=== PATIENT | male | born 1955 | race Caucasian/White ===

== ENCOUNTER 2020-02-27 16:47 | Emergency (ER) | payer MEDICAID ==
[2020-02-27] MEDS ORDERED: DEXAMETHASONE SOD PHOS INJ 10 MG/1 ML VIAL IM ONE (17:13)
--- NOTE | 2020-02-27 17:15 | ER Document Report ---
ED Medical Screen (RME) - General Chief Complaint: Hand Pain Stated Complaint: HAND PAIN Time Seen by Provider: 02/27/20 17:03 Notes: Patient is a 65-year-old male who presents to the emergency department with a chief complaint of bilateral hand pain. Patient states that he has had his symptoms for the past week. He also admits to having some numbness in his right middle finger. Patient states that he is supposed to have knee replacement surgery, but it got postponed. He has a history of arthritis. Patient states that over the past couple days, he has had excruciating pain. He has been taking ibuprofen, but is now self-medicating. Admits to drinking a 12 pack of beer today. His last drink was just prior to arrival. Exam: Tenderness to bilateral hands. I have greeted and performed a rapid initial assessment of this patient. A comprehensive ED assessment and evaluation of the patient, analysis of test results and completion of medical decision making process will be conducted by an additional ED providers. - Related Data Allergies/Adverse Reactions: No Known Allergies Allergy (Unverified 02/27/20 16:57) Home Medications: ibuprofen Past Medical History - Social History Chew tobacco use (# tins/day): No Frequency of alcohol use: Social Drug Abuse: None Physical Exam - Vital signs Vitals: Temp Pulse Resp BP Pulse Ox 98.0 F 104 H 18 160/86 H 94 02/27/20 16:52 02/27/20 16:52 02/27/20 16:52 02/27/20 16:52 02/27/20 16:52 Course - Vital Signs Vital signs: Temp Pulse Resp BP Pulse Ox 98.0 F 104 H 18 160/86 H 94 02/27/20 16:52 02/27/20 16:52 02/27/20 16:52 02/27/20 16:52 02/27/20 16:52
--- NOTE | 2020-02-27 18:10 | RADIOLOGY REPORT (SQ) ---
EXAM DESCRIPTION: HAND BILATERAL 3 VIEWS IMAGES COMPLETED DATE/TIME: 02/27/2020 4:25 pm REASON FOR STUDY: bilateral hand pain COMPARISON: None. EXAM PARAMETERS: NUMBER OF VIEWS: 6 views TECHNIQUE: AP, lateral and oblique radiographic images acquired of the right and left hand. LIMITATIONS: None. FINDINGS: MINERALIZATION: Normal. BONES: There is joint space narrowing, subchondral sclerosis and bony remodeling at the 1st digit car pometacarpal joint spaces bilaterally. Remaining carpal bones, metacarpal phalangeal and PIP and DIP joints have normal alignment and appearance. No acute fracture or dislocation of either hand. JOINTS: No effusions. No significant periarticular erosions or chondrocalcinosis. SOFT TISSUES: No soft tissue swelling. No foreign body. OTHER: No other significant finding. IMPRESSION: Moderate osteoarthritis 1st digit carpometacarpal joint bilaterally. No acute fracture or dislocation. TECHNICAL DOCUMENTATION: JOB ID: [id number] 2010 [employer]- All Rights Reserved Reading location - IP/workstation name: [email or web address]
[2020-02-27] MEDS ORDERED: KETOROLAC TROMETHAMINE 60 MG/2 ML SDV IM ONE (19:42)
--- NOTE | 2020-02-27 19:48 | ER Document Report ---
ED General - General Chief Complaint: Hand Pain Stated Complaint: HAND PAIN Time Seen by Provider: 02/27/20 17:03 - HPI Notes: Chief complaint: Bilateral hand pain 65-year-old male with generalized osteoarthritis awaiting right knee replacement and currently taking [id number] ibuprofen as his only medication comes in now with 2-week history of worsening stiffness and pain of both hands. He denies any injury. Patient states he is never been evaluated by a physician for gout. He currently does not have a primary care physician. He sees Dr. Jose Torres from orthopedics. Patient has no known history of kidney disease, liver disease or diabetes mellitus. He denies any known history of peptic ulcer disease. 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 HENT: Negative for sore throat. Eyes: Negative for visual changes. Cardiovascular: Negative for chest pain. Respiratory: Negative for shortness of breath. Gastrointestinal: Negative for abdominal pain, vomiting or diarrhea. Genitourinary: Negative for dysuria. Musculoskeletal: As per HPI. Skin: Negative for rash. Neurological: Negative for headaches, weakness or numbness. 10 point ROS negative except as marked above and in HPI. Physical Exam - Vital signs Vitals: Temp Pulse Resp BP Pulse Ox 98.0 F 104 H 18 160/86 H 94 02/27/20 16:52 02/27/20 16:52 02/27/20 16:52 02/27/20 16:52 02/27/20 16:52 - Notes Notes: GENERAL: Mildly obese male approximately stated age who appears uncomfortable. SKIN: Good turgor no rashes. HEAD: Normocephalic atraumatic. EYES: PERRLA. EOMI. Conjunctivae and sclerae clear. EARS: CANALS AND TMS CLEAR. NOSE: CLEAR. MOUTH: Moist mucosa. Good dentition. No stridor or edema. No drooling. NECK: Supple. No masses or thyromegaly. No adenopathy. Carotids 2+ without bruits. No JVD. BACK: Symmetrical without tenderness. CHEST: Respirations unlabored. Breath sounds clear and symmetrical. HEART: Regular rhythm. No murmur gallop or rub. ABDOMEN: Soft nontender without masses, organomegaly or rebound. Bowel sounds normally active. No bruits. GENITALIA: Deferred. EXTREMITIES: Mild degenerative changes in phalangeal joints of both hands. Diffuse tenderness over both hands. No visible swelling warmth or redness. Moderate crepitus right knee joint without effusion warmth or redness. No edema. No calf tenderness. Cap refill less than 1.5 seconds. Dorsalis pedis and posterior tibial pulses 3+ and symmetrical. NEUROLOGICAL: GCS 15. Alert and oriented x3. Normal gait. Fluent speech. Cranial nerves II through XII intact. Sensorimotor and cerebellar normal. Normal tone. PSYCHIATRIC: Appropriate affect. Course - Re-evaluation Re-evalutation: 02/27/20 19:46 X-rays reviewed by me and interpreted by radiologist showing mild to moderate diffuse degenerative changes. Patient is received IM Decadron here. Also given IM Toradol. I will place him on some Celebrex at home and have him follow-up with primary care physician and his orthopedist. He may also need further evaluation by a induction heating equipment setter. - Vital Signs Vital signs: Temp Pulse Resp BP Pulse Ox 98.0 F 104 H 18 160/86 H 94 02/27/20 16:52 02/27/20 16:52 02/27/20 16:52 02/27/20 16:52 02/27/20 16:52 Discharge - Discharge Clinical Impression: Inflammatory osteoarthritis Condition: Stable Disposition: HOME, SELF-CARE Additional Instructions: Osteoarthritis Your symptoms are due to osteoarthritis. Osteoarthritis is inflammation caused by "wear and tear" of the joints. There is no cure for osteoarthritis, but medicine can help the pain and stiffness. It's important to keep the joints moving. Move the joints through their full range daily. Light exercise helps, but if exercise hurts, switch to a non-impact exercise like swimming. Local warmth may help ease pain. Call or return if any joint becomes severely swollen or increasingly painful, or if you have fever or spreading redness. Take prescribed medication as instructed. Follow-up with your orthopedic physician and primary care physician. You may wish to also talk with him about referral to a induction heating equipment setter. Elevate both hands and apply ice packs intermittently. Prescriptions: Celecoxib [Celebrex 100 mg Capsule] 100 mg PO BID #30 capsule Referrals: [facility] [Provider Group] - Follow up as needed
[2020-02-27 20:01] VITALS: BP 114/70
== END 2020-02-27 20:03 | disposition home or self-care (01) ==
LOC: ER 16:47
DX: M19.90 Unspecified osteoarthritis, unspecified site (principal); M79.642 Pain in left hand; M79.641 Pain in right hand; E66.9 Obesity, unspecified; F17.200 Nicotine dependence, unspecified, uncomplicated
CPT/HCPCS: 99283; 96372; 73130; J1885; J1100

== ENCOUNTER 2020-04-07 20:36 | Emergency (ER) | payer MEDICAID ==
[2020-04-07 20:54] VITALS: BP 134/99
[2020-04-07] MEDS ORDERED: ACETAMINOPHEN 325 MG TABLET PO ONE (21:17)
[2020-04-07 22:31] LABS: ABSOLUTE BASOPHILS # (AUTO) 0.1 10^3/uL (0.0-0.2); ABSOLUTE EOSINOPHILS # (AUTO) 0.1 10^3/uL (0.0-0.6); ABSOLUTE LYMPHOCYTES (AUTO) 2.9 10^3/uL (0.5-4.7); ABSOLUTE MONOCYTES (AUTO) 0.5 10^3/uL (0.1-1.4); ABSOLUTE NEUT (AUTO) 4.3 10^3/uL (1.7-8.2); BASOPHILS % (AUTO) 1.4 % (0-2); EOSINOPHILS % (AUTO) 1.5 % (0-6); HEMATOCRIT 43.8 % (37.9-51.0); HEMOGLOBIN 15.1 g/dL (13.5-17.0); LYMPHOCYTES % (AUTO) 36.4 % (13-45); MEAN CORPUSCULAR HEMOGLOBIN 31.1 pg (27.0-33.4); MEAN CORPUSCULAR HGB CONC 34.4 g/dL (32.0-36.0); MEAN CORPUSCULAR VOLUME 91 fl (80-97); MONOCYTES % (AUTO) 6.5 % (3-13); PLATELET COUNT 341 10^3/uL (150-450); RED BLOOD COUNT 4.84 10^6/uL (4.35-5.55); RED CELL DISTRIBUTION WIDTH 15.2 % (11.5-14.0); SEGMENTED NEUTROPHILS % (AUTO) 54.2 % (42-78); TOTAL CELLS COUNTED % (AUTO) 100 %; WHITE BLOOD COUNT 7.9 10^3/uL (4.0-10.5)
[2020-04-07 23:00] LABS: ANION GAP 10 (5-19); BLOOD UREA NITROGEN 11 mg/dL (7-20); CALCIUM 8.5 mg/dL (8.4-10.2); CARBON DIOXIDE 24 mmol/L (22-30); CHLORIDE 103 mmol/L (98-107); GLUCOSE 103 mg/dL (75-110); POTASSIUM 3.7 mmol/L (3.6-5.0); URIC ACID 5.4 mg/dL (3.5-8.5)
[2020-04-07] MEDS ORDERED: GABAPENTIN 100 MG CAPSULE PO ONE (23:23)
--- NOTE | 2020-04-07 23:29 | ER Document Report ---
HPI - HPI Patient complains to provider of: Bilateral hand pain Time Seen by Provider: 04/07/20 21:10 Onset: Other - Several months Onset/Duration: Persistent Quality of pain: Achy, Burning Pain Level: 4 Context: Patient complains of bilateral hand pain for the past several months. Patient denies any injury or trauma. Patient denies any fever. Patient denies any k nown history of gout. Patient does report a history of arthritis. Patient states that he wears compression gloves that seem to help with his discomfort symptoms. Associated Symptoms: denies: Fever Exacerbated by: Movement Relieved by: Denies Similar symptoms previously: No Recently seen / treated by doctor: No - ROS ROS below otherwise negative: Yes Systems Reviewed and Negative: Yes All other systems reviewed and negative - CONSTITUTIONAL Constitutional: DENIES: Fever, Chills - NEURO Neurology: DENIES: Weakness - MUSCULOSKELETAL Musculoskeletal: REPORTS: Extremity pain. DENIES: Swelling - DERM Skin Color: Normal Notes: Pigmentation changes around the nailbed Past Medical History - General Information source: Patient - Social History Smoking Status: Current Every Day Smoker Frequency of alcohol use: Heavy Drug Abuse: None Occupation: [employer] Family History: Reviewed & Not Pertinent Patient has homicidal ideation: No Musculoskeletal Medical History: Reports Hx Arthritis Past Surgical History: Reports: Hx Herniorrhaphy Vertical Provider Document - CONSTITUTIONAL Agree With Documented VS: Yes Exam Limitations: No Limitations General Appearance: WD/WN, No Apparent Distress - HEENT HEENT: Atraumatic, Normocephalic - NECK Neck: Normal Inspection, Supple. negative: Lymphadenopathy-Left, Lymphadenopathy-Right - RESPIRATORY Respiratory: Breath Sounds Normal, No Respiratory Distress - CARDIOVASCULAR Cardiovascular: Regular Rate, Regular Rhythm Pulses: Normal: Radial - MUSCULOSKELETAL/EXTREMETIES Musculoskeletal/Extremeties: MAEW, FROM, Tender - Tenderness to bilateral hands, no edema, normal cap refill to the fingers. Normal telemetry technician strength, No Edema - NEURO Level of Consciousness: Awake, Alert, Appropriate Motor/Sensory: No Motor Deficit, No Sensory Deficit - DERM Integumentary: Warm, Dry, No Rash Course - Re-evaluation Re-evalutation: 04/07/20 23:25 Patient without any acute findings on laboratory reports. Patient complains of bilateral hand pain for the past several months. Will encourage follow-up with a primary care provider for recheck. Patient advised not to take his medications if he is drinking alcohol. - Vital Signs Vital signs: Temp Pulse Resp BP Pulse Ox 98 F 99 20 134/99 H 97 04/07/20 21:10 04/07/20 20:53 04/07/20 20:53 04/07/20 20:53 04/07/20 20:53 - Laboratory Result Diagrams: 04/07/20 21:17 04/07/20 21:17 Laboratory results interpreted by me: 04/07/20 04/07/20 21:17 21:17 RDW 15.2 H Sodium 136.8 L 04/07/20 23:25 Labs- Entire Visit 04/07/20 04/07/20 21:17 21:17 WBC 7.9 RBC 4.84 Hgb 15.1 Hct 43.8 MCV 91 MCH 31.1 MCHC 34.4 RDW 15.2 H Plt Count 341 Lymph % (Auto) 36.4 Catron % (Auto) 6.5 Eos % (Auto) 1.5 Baso % (Auto) 1.4 Absolute Neuts (auto) 4.3 Absolute Lymphs (auto) 2.9 Absolute Monos (auto) 0.5 Absolute Eos (auto) 0.1 Absolute Basos (auto) 0.1 Seg Neutrophils % 54.2 Sodium 136.8 L Potassium 3.7 Chloride 103 Carbon Dioxide 24 Anion Gap 10 BUN 11 Creatinine 1.17 Est GFR ( Amer) > 60 Est GFR (MDRD) Non-Af > 60 Glucose 103 Uric Acid 5.4 Calcium 8.5 Discharge - Discharge Clinical Impression: Bilateral hand pain Condition: Stable Disposition: HOME, SELF-CARE Instructions: Neuropathy ([facility]) Additional Instructions: Return immediately for any new or worsening symptoms Followup with your primary care provider, call tomorrow to make a followup appointment Do not drink alcohol when you are taking the medication Follow-up with a neurologist Prescriptions: Naproxen [Naprosyn 250 Nmg Tablet] 1 tab PO BID #14 tablet Gabapentin [Neurontin 100 mg Capsule] 100 mg PO BID #30 capsule Referrals: [facility] [Provider Group] - Follow up tomorrow FATOUMATA HARTMAN MD [NO LOCAL MD] - Follow up in 3-5 days
== END 2020-04-07 23:36 | disposition home or self-care (01) ==
LOC: ER 20:36
DX: M79.641 Pain in right hand (principal); M79.642 Pain in left hand; F17.200 Nicotine dependence, unspecified, uncomplicated
CPT/HCPCS: 99283; 36415; 84550; 85025; 80048; J3490 ×2

== ENCOUNTER → 2020-11-26 | Outpatient (CLI) | payer MEDICAID ==
--- NOTE | 2020-11-26 15:20 | ER RDC ASSESSMENT REPORT ---
Intake - In the Last 14 days Have you traveled outside [place]?: No Have you been in close contact with someone CONFIRMED: Yes Worked in Healthcare?: No - Symptoms Subjective Fever(Pep feverish): No Chills: No Muscule Aches: No Runny Nose: No Sore Throat: No Cough (New or worsening chronic cough): No Shortness of breath: No Nausea or Vomiting: No Headache: No Abdominal Pain: No Diarrhea(3 or more loose stools in last 24 hours): No - Do you have any of the following Chronic lung disease: Asthma or emphysema or COPD: No Cystic Fibrosis: No Diabetes: No High Blood Pressure: Yes Cardiovascular Disease: Yes Chronic Kidney Disease: No Chronic Liver Disease: No Chronic blood disorder like Sickle Cell Disease: No Weak immune system due to disease or medication: No Neurologic condition that limits movement: No Developmental delay - Moderate to Severe: No Recent (within past 2 weeks) or current : No Morbid Obesity (>100 pounds over ideal weight): No Obesity Comment: Height 5 feet 11 inches weight 220 pounds - Objective Temperature: 97.7 F Pulse Rate: 87 Respiratory Rate: 18 Blood Pressure: 129/75 O2 Sat by Pulse Oximetry: 95 Objective: Given above, testing performed: If Testing Performed: Test Specimen Type Sent to General - General Information source: Patient Notes: Patient here at [facility] for Covid testing patient reports had exposure to coworker who has tested positive patient denies any symptoms at this time patient's PCP is with [facility] and plans to follow-up with them accordingly. - Related Data Allergies/Adverse Reactions: No Known Allergies Allergy (Unverified 02/27/20 16:57) Past Medical History - General Information source: Patient - Smokes a pack a day - Social History Smoking Status: Current Every Day Smoker Smoking Education Provided: Yes - Stop Smoking Family History: Reviewed & Not Pertinent Musculoskeletal Medical History: Reports Hx Arthritis Past Surgical History: Reports: Hx Herniorrhaphy Physical Exam - General General appearance: Appears well, Alert In distress: None Notes: PHYSICAL EXAMINATION: GENERAL: Well-appearing and in no acute distress. HEAD: Atraumatic, normocephalic. EYES: sclera anicteric, conjunctiva are normal. ENT: nares patent. Moist mucous membranes. NECK: Normal range of motion, supple without lymphadenopathy LUNGS: CTAB and equal. No wheezes rales or rhonchi. Respirations even and unlabored lung sounds clear. HEART: Regular rate and rhythm without murmurs ABDOMEN: Soft, nontender, normal bowel sounds, no guarding. EXTREMITIES: Normal range of motion, no pitting edema. No cyanosis. NEUROLOGICAL: Cranial nerves grossly intact. Normal speech. Normal gait. PSYCH: Normal mood, normal affect. SKIN: Warm, Dry, normal turgor, no rashes or lesions noted Diagnostic Results Laboratory Results: Ending Covid testing results. Patient provided instructions regarding Covid to include: As a person under investigation for Covid 19, the [facility], division of public health advises you to adhere to the following guidance until your test results are reported to you. If your test result is positive, you will receive additional information from your provider and your local health department at that time. Remain at home until you are cleared by the health provider or public health authorities. Keep a log of visitors to your home, notify any visitors to your home of your isolation status. If you plan to move to a new address or leave the [facility], notify the local health department in your County. Call your doctor or seek care if you have an urgent medical need. Before seeking medical care, call ahead to get instructions from the provider before arriving at the medical office clinic or hospital. Notify them that you are being tested for the virus that causes Covid 19 so that arrangements can be made, as necessary, to prevent transmission to others in the healthcare setting. Next, notify the local health department in your [facility]. If a medical emergency arises and you need to call 911, inform the first responders that you are being tested for the virus that causes Covid 19. Next, notify the local health department in your [facility]. Patient Education/Counseling Counseling/Education: Patient presents with upper respiratory symptoms worrisome for possible Covid 19. Patient does not have emergency worring symptoms such as difficulty breathing, shortness of breath, chest pain, pressure, confusion or cyanosis. Patient appears suitable for discharge. Patient instructed to follow-up with his PCP at [facility]. Patient's vital signs are stable and patient is nontoxic in appearance. Good return precautions have been discussed with patient, patient verbalized understanding and is agreeable with discharge plan of care at this time. [facility] Discharge - Discharge Clinical Impression: Encounter for screening laboratory testing for COVID-19 virus in asymptomatic patient Condition: Stable Disposition: Home; Selfcare
[2020-11-26 15:21] VITALS: BP 129/75
== END ==
LOC: RDC 12:53
PROVIDERS: ATTEND Nurse Practitioner Family
DX: Z20.828 Contact with and (suspected) exposure to other viral communicable diseases (principal); I10 Essential (primary) hypertension; F17.210 Nicotine dependence, cigarettes, uncomplicated; Z71.6 Tobacco abuse counseling; M13.80 Other specified arthritis, unspecified site
CPT/HCPCS: 87635; 99201; 99211; C9803